=== PATIENT | male | born 1950 | race Caucasian/White ===

== ENCOUNTER 2023-02-11 17:57 | Outpatient (OUT) | payer MEDICARE, OTHER, SELFPAY ==
[2023-02-11 19:03] LABS: Basophils Percent Auto 0.4 % (0.2-2.0); Eosinophils Absolute Auto 0.3 10^3/uL (0.0-0.7); Eosinophils Percent Auto 5.3 % (0.9-7.0); Hematocrit 29.2 % (42.0-54.0); Immature Granulocytes Abs Auto 0.07 10^3/uL (0.00-0.03); Immature Granulocytes Pct Auto 1.3 % (0.0-0.5); Lymphocytes Absolute Auto 0.6 10^3/uL (1.2-3.8); Lymphocytes Percent Auto 10.6 % (20.5-60.0); Mean Corpuscular HGB Conc 30.8 g/dL (29.9-35.2); Mean Corpuscular Hemoglobin 26.2 pg (25.9-34.0); Mean Corpuscular Volume 84.9 fL (80.0-94.0); Mean Platelet Volume 10.1 fL (9.5-13.5); Monocytes Absolute Auto 0.4 10^3/uL (0.3-0.8); Monocytes Percent Auto 8.3 % (1.7-12.0); Neutrophils Absolute Auto 3.9 10^3/uL (1.4-6.5); Neutrophils Percent Auto 74.1 % (43.0-75.0); Platelet Count 164 10^3/uL (150-450); Red Blood Count 3.44 10^6/uL (4.70-6.10); Red Cell Distribution Width 20.4 % (11.0-15.0); White Blood Count 5.3 10^3/uL (4.0-11.0)
[2023-02-11 20:52] LABS: Anion Gap 12.7; BUN Creatinine Ratio 15.2; Carbon Dioxide 21.7 mmol/L (21.0-32.0); Chloride 111 mmol/L (98-107); Estimated GFR (African America 38 (>=60); Estimated GFR (Non-African Ame 31 (>=60); Glucose 101 mg/dL (74-106); Potassium 3.4 mmol/L (3.5-5.1); Sodium 142 mmol/L (136-145)
== END 2023-02-11 17:58 | disposition home or self-care (01) ==
PROVIDERS: PCP Internal Medicine
DX: N17.9 Acute kidney failure, unspecified (principal); I71.20 Thoracic aortic aneurysm, without rupture, unspecified
CPT/HCPCS: 36415; 80048; 85025

== ENCOUNTER 2023-12-27 21:01 | Emergency (ER) | payer OTHER, SELFPAY ==
[2023-12-27] VITALS (21 sets, daily range): BP systolic 194–217; BP diastolic 93–115; PULSE 72–94; TEMP 36; O2SAT 92–96; BMI 28.1
--- NOTE | 2023-12-27 21:17 | CT_ITS ---
The [address] [address] Patient Name: RAYA WILSON MRN: [id number] date: 1950 Sex: M Assigned Patient Location: ER Current Patient Location: ER Accession/Order Number: [id number] Exam Date: 12/27/2023 21:58 Report Date: 12/27/2023 22:21 At the request of: LIAM CONTRERAS Procedure: CT cervical spine wo con EXAM: CT cervical spine wo con CLINICAL INDICATION: trauma COMPARISON: None. TECHNIQUE: CT scanning of the cervical spine was performed in the axial plane. Coronal and sagittal reconstructed images were performed and viewed. FINDINGS: Comminuted nondisplaced type II odontoid fracture involving the posterior aspect of the dens and extending to the right C2 transverse process below the transverse foramen level. The spine is in anatomic alignment. Mild to moderate multilevel degenerative disc and facet disease. The prevertebral soft tissues are unremarkable. Additional soft tissues of the neck and upper thorax are unremarkable. CT/CT cervical spine wo con IMPRESSION: Odontoid fracture as described. Electronically authenticated by: EPIFANIO VERDE Date: 12/27/2023 22:21
--- NOTE | 2023-12-27 21:17 | CT_ITS ---
The [place] [id number] Patient Name: RAYA WILSON MRN: [id number] date: 1950 Sex: M Assigned Patient Location: ER Current Patient Location: ER Accession/Order Number: [id number] Exam Date: 12/27/2023 21:52 Report Date: 12/27/2023 22:16 At the request of: LIAM CONTRERAS Procedure: CT head/brain wo con EXAM: CT head/brain wo con CLINICAL INDICATION: trauma TECHNIQUE: Unenhanced computerized tomography of the head was performed. Automated dose reduction technique was employed. COMPARISON: None. FINDINGS: The ventricles are normal in size, configuration, and position for age. There is no intra- or extra-axial mass, hemorrhage, or fluid collection. No areas of abnormal mass effect or attenuation are noted. There is mild subcortical, deep, and periventricular white matter low-attenuation, compatible with changes of chronic small vessel ischemic disease. Visualized paranasal sinuses are free of mucosal disease. No depressed calvarial fracture. Large left frontal scalp hematoma. CT/CT head/brain wo con IMPRESSION: No acute intracranial abnormality noted. Electronically authenticated by: EPIFANIO VERDE Date: 12/27/2023 22:16
--- NOTE | 2023-12-27 21:19 | ED.FALL1 ---
HPI HPI - Fall General Chief Complaint: Fall Stated Complaint: FALL, HEAD INJURY Time Seen by Provider: 12/27/23 21:06 Mode of arrival: Wheelchair History of Present Illness HPI Narrative: carrying a plant down the stairs outdoors and thought he was on the last step. Loss his balance and went forward striking the top of his head on the garage door. Believes he may have cut left wrist on broken plant pot. Denies LOC. States he was able to get up. No nausea or vomiting. No vision complaint. Denies weakness of his extremities. Denies pain his back or hips. Complains of neck pain. Takes plavix. No abdominal pain. Drove to ER by his complaint: Reports fall Related Data Home Medications ?Medication ?Instructions ?Recorded ?Confirmed atorvastatin 20 mg tablet 20 mg PO DAILY 12/27/23 12/27/23 carvedilol 25 mg tablet 25 mg PO Q12H 12/27/23 12/27/23 clopidogrel 75 mg tablet 75 mg PO DAILY 12/27/23 12/27/23 furosemide 20 mg tablet 20 mg PO DAILY 12/27/23 12/27/23 hydralazine 10 mg tablet 10 mg PO Q8H 12/27/23 12/27/23 pantoprazole 40 mg tablet,delayed 40 mg PO DAILY 12/27/23 12/27/23 release Allergies Allergy/AdvReac Type Severity Reaction Status Date / Time aspirin Allergy Mild Sneezing Verified 12/27/23 21:17 Opioid HPI Opioid Management Most Recent Pain and Opioid Data: No Data to Display Review of Systems ROS Status of ROS 10 or more systems reviewed and unremarkable except as noted in history and below Exam Constitutional Vital Signs, click to edit/add: Last Vital Signs Temp 96.8 F L 12/27/23 21:07 Pulse 72 12/27/23 21:53 Resp 16 12/27/23 21:53 BP 206/101 H 12/27/23 23:45 Pulse Ox 93 L 12/27/23 23:02 O2 Del Method Room Air 12/27/23 21:53 Common normals: average body habitus, oriented x3, no limitations, healthy appearing, alert and well nourished [facility] Other: 9cm lac top of frontal parietal scalp with mod swelling Eye Common normals: PERRL, EOMs intact bilaterally and conjunctivae normal Neck & C-Spine Other: neck in C-collar Chest Common normals: inspection of chest normal and palpation of chest normal Respiratory Common normals: normal respiratory effort, no retractions, no use of accessory muscles and clear to auscultation bilaterally Cardio Common normals: regular rate, regular rhythm, S1 normal heart sound and S2 normal heart sound GI Common normals: Normal to inspection, nondistended, normoactive bowel sounds present, soft to palpation and non-tender Back & Pelvis Common normals: thoracic and lumbar spine normal to inspection and no thoracic nor lumbar tenderness Extremity Common normals: normal to inspection and full ROM Other: small cut left dorsal wrist Neuro Common normals: oriented x3, CN's II-XII intact bilaterally, moves all extremities and no focal motor deficits Psych Appearance: grossly normal Course Vital Signs Vital signs: Vital Signs Temperature 96.8 F L 12/27/23 21:07 Pulse Rate 94 H 12/27/23 21:07 Respiratory Rate 18 12/27/23 21:07 Blood Pressure 217/115 H 12/27/23 21:07 Pulse Oximetry 94 L 12/27/23 21:07 Oxygen Delivery Method Room Air 12/27/23 21:07 Temperature 96.8 F L 12/27/23 21:07 Pulse Rate 72 12/27/23 21:53 Respiratory Rate 16 12/27/23 21:53 Blood Pressure 206/101 H 12/27/23 23:45 Pulse Oximetry 93 L 12/27/23 23:02 Oxygen Delivery Method Room Air 12/27/23 21:53 MDM - Fall MDM Narrative Medical decision making narrative: patient fell falling forward and striking his head against the garage door sustaining a laceration. large scalp laceration. lac repaired with # 12 3.0 nylon stitches. large hematoma of his scalp. He takes plavix. also has hematoma left forearm. CT with odontoid fracture. GCS 15. No neuro deficits. Discussed with Vivi Grant and patient accepted in transfer Lab Data Labs: Lab Results 12/27/23 Range/Units 21:30 WBC 10.6 (4.0-11.0) 10^3/uL RBC 4.06 L (4.70-6.10) 10^6/uL Hgb 9.5 L (14.0-18.0) g/dL Hct 32.7 L (42.0-54.0) % MCV 80.5 (80.0-94.0) fL MCH 23.4 L (25.9-34.0) pg MCHC 29.1 L (29.9-35.2) g/dL RDW 18.3 H (11.0-15.0) % Plt Count 205 (150-450) 10^3/uL MPV 10.1 (9.5-13.5) fL Neut % (Auto) 80.4 H (43.0-75.0) % Lymph % (Auto) 8.5 L (20.5-60.0) % [place] % (Auto) 5.9 (1.7-12.0) % Eos % (Auto) 3.7 (0.9-7.0) % Baso % (Auto) 0.3 (0.2-2.0) % Neut # (Auto) 8.5 H (1.4-6.5) 10^3/uL Lymph # (Auto) 0.9 L (1.2-3.8) 10^3/uL [place] # (Auto) 0.6 (0.3-0.8) 10^3/uL Eos # (Auto) 0.4 (0.0-0.7) 10^3/uL Baso # (Auto) 0.0 (0.0-0.1) 10^3/uL Abs Immat Gran (auto) 0.13 H (0.00-0.03) 10^3/uL Imm/Tot Granulo (auto) 1.2 H (0.0-0.5) % Sodium 143 (136-145) mmol/L Potassium 4.0 (3.5-5.1) mmol/L Chloride 109 H (98-107) mmol/L Carbon Dioxide 26.2 (21.0-32.0) mmol/L Anion Gap 11.8 BUN 26.0 H (7.0-18.0) mg/dL Creatinine 1.64 H (0.70-1.30) mg/dL Est GFR ( Amer) 50 L (>=60) Est GFR (Non-Af Amer) 41 L (>=60) BUN/Creatinine Ratio 15.9 Glucose 120 H (74-106) mg/dL Lactate 1.4 (0.4-2.0) mmol/L Calcium 8.5 (8.5-10.1) mg/dL Total Bilirubin 0.8 (0.2-1.0) mg/dL AST 19 (15-37) U/L ALT 13 L (16-63) U/L Alkaline Phosphatase 86 (46-116) U/L Troponin I High Sens 14.7 (4.0-76.1) pg/mL Total Protein 7.5 (6.4-8.2) g/dL Albumin 2.8 L (3.4-5.0) g/dL Globulin 4.7 g/dL Albumin/Globulin Ratio 0.[address] scan - abdomen: Radiologist's impression: ITS Impressions Cervical Spine CT 12/27/23 21:17 IMPRESSION: Odontoid fracture as described. Electronically authenticated by: EPIFANIO VERDE Date: 12/27/2023 22:[address] 12/27/23 21:17 IMPRESSION: No acute intracranial abnormality noted. Electronically authenticated by: EPIFANIO VERDE Date: 12/27/2023 22:16 Forearm X-Ray 12/27/23 22:16 IMPRESSION: No acute osseous abnormality of the left forearm. Distal forearm dorsal hematoma. Electronically authenticated by: PAIGE PACKER Date: 12/27/2023 23:25 Abdominal x-ray: Attestation: I have reviewed the pertinent imaging results. Radiologist's impression: ITS Impressions Cervical Spine CT 12/27/23 21:17 IMPRESSION: Odontoid fracture as described. Electronically authenticated by: EPIFANIO VERDE Date: 12/27/2023 22:[address] 12/27/23 21:17 IMPRESSION: No acute intracranial abnormality noted. Electronically authenticated by: EPIFANIO VERDE Date: 12/27/2023 22:16 Forearm X-Ray 12/27/23 22:16 IMPRESSION: No acute osseous abnormality of the left forearm. Distal forearm dorsal hematoma. Electronically authenticated by: PAIGE PACKER Date: 12/27/2023 23:25 Chest x-ray: Radiologist's impression: ITS Impressions Cervical Spine CT 12/27/23 21:17 IMPRESSION: Odontoid fracture as described. Electronically authenticated by: EPIFANIO VERDE Date: 12/27/2023 22:[address] 12/27/23 21:17 IMPRESSION: No acute intracranial abnormality noted. Electronically authenticated by: EPIFANIO VERDE Date: 12/27/2023 22:16 Forearm X-Ray 12/27/23 22:16 IMPRESSION: No acute osseous abnormality of the left forearm. Distal forearm dorsal hematoma. Electronically authenticated by: PAIGE PACKER Date: 12/27/2023 23:25 Discharge Plan Discharge Chief Complaint: Fall Clinical Impression: Hematoma of left forearm, Odontoid fracture, Complex laceration of scalp [facility] Procedures ED Procedure Instructions Procedures Procedures: <del>scalp</del> <del>lac.</del> <del>9cm</del> <del>lac</del> <del>frontal</del> <del>parietal</del> <del>scalp</del> <del>into</del> <del>SQ.</del> <del>Active</del> <del>bleeding</del> <del>and</del> <del>large</del> <del>hematoma</del> <del>1%</del> <del>lido</del> <del>with</del> <del>epi</del> <del>as</del> <del>a</del> <del>local.</del> <del>site</del> <del>cleaned</del> <del>with</del> <del>betadine</del> <del>and</del> <del>irrigated</del> <del>with</del> <del>saline.</del> <del>Closed</del> <del>with</del> <del>#12</del> <del>3.0nylone</del> <del>stitches.</del> <del>bleeding</del> <del>decreased</del> <del>significantly</del> <del>and</del> <del>pressure</del> <del>dressing</del> <del>applied</del> <del>over</del> <del>the</del> <del>site</del>
[2023-12-27] MEDS: LABETALOL HCL 20 MG/4 ML SYRINGE 10 MG IVP ×2 (21:39→22:49)
--- NOTE | 2023-12-27 21:45 | PC.NURSE ---
Pt had a cataract extraction with lens implant on thursday12/21/23 , of left eye
[2023-12-27 21:51] LABS: Basophils Percent Auto 0.3 % (0.2-2.0); Eosinophils Absolute Auto 0.4 10^3/uL (0.0-0.7); Eosinophils Percent Auto 3.7 % (0.9-7.0); Hematocrit 32.7 % (42.0-54.0); Hemoglobin 9.5 g/dL (14.0-18.0); Immature Granulocytes Abs Auto 0.13 10^3/uL (0.00-0.03); Immature Granulocytes Pct Auto 1.2 % (0.0-0.5); Lymphocytes Absolute Auto 0.9 10^3/uL (1.2-3.8); Lymphocytes Percent Auto 8.5 % (20.5-60.0); Mean Corpuscular HGB Conc 29.1 g/dL (29.9-35.2); Mean Corpuscular Hemoglobin 23.4 pg (25.9-34.0); Mean Corpuscular Volume 80.5 fL (80.0-94.0); Mean Platelet Volume 10.1 fL (9.5-13.5); Monocytes Absolute Auto 0.6 10^3/uL (0.3-0.8); Monocytes Percent Auto 5.9 % (1.7-12.0); Neutrophils Absolute Auto 8.5 10^3/uL (1.4-6.5); Neutrophils Percent Auto 80.4 % (43.0-75.0); Platelet Count 205 10^3/uL (150-450); Red Blood Count 4.06 10^6/uL (4.70-6.10); Red Cell Distribution Width 18.3 % (11.0-15.0); White Blood Count 10.6 10^3/uL (4.0-11.0)
[2023-12-27 22:09] LABS: Lactate/Lactic Acid 1.4 mmol/L (0.4-2.0)
[2023-12-27 22:15] LABS: Alanine Aminotransferase 13 U/L (16-63); Albumin Globulin Ratio 0.6; Albumin Level 2.8 g/dL (3.4-5.0); Alkaline Phosphatase 86 U/L (46-116); Anion Gap 11.8; Aspartate Amino Transferase 19 U/L (15-37); BUN Creatinine Ratio 15.9; Bilirubin Total 0.8 mg/dL (0.2-1.0); Calcium 8.5 mg/dL (8.5-10.1); Carbon Dioxide 26.2 mmol/L (21.0-32.0); Chloride 109 mmol/L (98-107); Estimated GFR (African America 50 (>=60); Estimated GFR (Non-African Ame 41 (>=60); Globulin 4.7 g/dL; Glucose 120 mg/dL (74-106); Sodium 143 mmol/L (136-145); Total Protein 7.5 g/dL (6.4-8.2); Troponin I High Sensitivity 14.7 pg/mL (4.0-76.1)
--- NOTE | 2023-12-27 22:16 | XR_ITS ---
The [place] [id number] Patient Name: RAYA WILSON MRN: [id number] date: 1950 Sex: M Assigned Patient Location: ER Current Patient Location: ER Accession/Order Number: [id number] Exam Date: 12/27/2023 23:01 Report Date: 12/27/2023 23:25 At the request of: LIAM CONTRERAS Procedure: XR forearm LT 2V XR forearm LT 2V 12/27/2023 11:01 PM EDT CLINICAL INDICATION: Trauma COMPARISON: None. TECHNIQUE: 2 views of the left forearm. FINDINGS: Bones appear intact with anatomic alignment. Joint spaces appear maintained. There is a hematoma measuring up to 11.9 centimeters seen along the dorsum of the distal forearm. XR/XR forearm LT 2V IMPRESSION: No acute osseous abnormality of the left forearm. Distal forearm dorsal hematoma. Electronically authenticated by: PAIGE PACKER Date: 12/27/2023 23:25
[2023-12-27] MEDS: HYDRALAZINE HCL 20 MG/ML VIAL 5 MG IVP (23:25)
[2023-12-27] MEDS: SODIUM CHLORIDE 0.9% IRRIG SOLUTION 1,000 ML BOTTLE 1000 ML IRR (23:56)
[2023-12-27] MEDS: LIDOCAINE HCL 1%-EPINEPHRINE 1:100,000 20 ML MDV INJ (23:57)
[2023-12-28] VITALS (10 sets, daily range): BP systolic 189–209; BP diastolic 84–96; O2SAT 95–97
--- NOTE | 2023-12-28 00:49 | PC.NURSE ---
12 sutures intact and pressure dressing applied at this time.
[2023-12-28] MEDS: HYDRALAZINE HCL 20 MG/ML VIAL 5 MG IVP (01:09)
== END 2023-12-28 01:42 | disposition short-term general hospital (02) ==
PROVIDERS: Emergency Provider Internal Medicine; PCP Internal Medicine
DX: S12.112A Nondisplaced Type II dens fracture, initial encounter for closed fracture (principal); S01.01XA Laceration without foreign body of scalp, initial encounter; W10.8XXA Fall (on) (from) other stairs and steps, initial encounter; Z79.02 Long term (current) use of antithrombotics/antiplatelets; S50.12XA Contusion of left forearm, initial encounter; W22.8XXA Striking against or struck by other objects, initial encounter
CPT/HCPCS: 12004; 36415; 70450; 72125; 73090; 80053; 83605; 84484; 85025; 96374; 96375; 96376; 99285

== ENCOUNTER 2024-02-29 09:49 | Outpatient (RCR) | payer OTHER, SELFPAY | END 2024-03-15 16:51 | disposition home or self-care (01) | LOC: PT 09:49 | PROVIDERS: PCP Internal Medicine | DX: Z98.1 Arthrodesis status (principal); R29.3 Abnormal posture | CPT/HCPCS: 97110; 97161 ==

== ENCOUNTER 2025-03-16 07:29 | Outpatient (RCR) | payer OTHER, SELFPAY ==
[2025-03-04 10:20] VITALS: BP 99/55; PULSE 71; TEMP 36.5; O2SAT 95
[2025-03-05 10:04] VITALS: BP 92/60; PULSE 74; TEMP 36.6; O2SAT 95
[2025-03-06 09:54] VITALS: BP 127/80; PULSE 77; TEMP 36.9; O2SAT 92
--- NOTE | 2025-03-06 10:07 | PC.NURSE ---
inserted at [facility]
[2025-03-07 09:44] VITALS: BP 138/78; PULSE 74; TEMP 37; O2SAT 95
[2025-03-07 10:03] LABS: Hematocrit 26.7 % (42.0-54.0); Hemoglobin 8.3 g/dL (14.0-18.0); Immature Granulocytes Abs Auto 0.06 10^3/uL (0.00-0.03); Immature Granulocytes Pct Auto 0.6 % (0.0-0.5); Lymphocytes Absolute Auto 0.5 10^3/uL (1.2-3.8); Mean Corpuscular HGB Conc 31.1 g/dL (29.9-35.2); Mean Corpuscular Hemoglobin 25.5 pg (25.9-34.0); Mean Corpuscular Volume 81.9 fL (80.0-94.0); Platelet Count 246 10^3/uL (150-450); Red Blood Count 3.26 10^6/uL (4.70-6.10); White Blood Count 9.5 10^3/uL (4.0-11.0)
[2025-03-07 10:12] LABS: Anion Gap 11.0; Blood Urea Nitrogen 15.0 mg/dL (7.0-18.0); Calcium 8.1 mg/dL (8.5-10.1); Carbon Dioxide 29.3 mmol/L (21.0-32.0); Chloride 104 mmol/L (98-107); Estimated GFR (African America >60 (>=60 mL/min/1.73m^2); Estimated GFR (Non-African Ame >60 (>=60 mL/min/1.73m^2); Glucose 119 mg/dL (74-106); Potassium 4.3 mmol/L (3.5-5.1); Sodium 140 mmol/L (136-145)
[2025-03-08 09:46] VITALS: BP 135/69; PULSE 77; TEMP 37; O2SAT 93
[2025-03-09 09:43] VITALS: BP 131/67; PULSE 73; TEMP 37.4; O2SAT 94
--- NOTE | 2025-03-09 09:47 | PC.NURSE ---
Rt upper arm picc line intact, excellent blood return noted. IV antibiotics administered as ordered. old dressing stat lock removed. Approx 1 cm external catheter noted, site clear no reddness or edema. Under sterile technique, site cleansed with CHG sponge, skin prep applied. new stat lock and CHG dressing applied, new clave connector applied as well as CHG cap applied after antibiotic infusion. tolerated well. Patient relates to some edema of BLE, noted to have 2+pitting pretibial edema. states he has had it for the past week. denies any heart problems, denies shortness of breath, educated patient on limiting na intake, wearing support hose and keeping lower extremities elevated as much as possible, verbalizes understanding
[2025-03-10 09:40] VITALS: BP 123/58; PULSE 77; TEMP 36.6; O2SAT 93
[2025-03-11 09:52] VITALS: BP 132/73; PULSE 88; TEMP 36.7; O2SAT 95
[2025-03-11 10:34] VITALS: BP 106/64; PULSE 82; TEMP 37; O2SAT 95
[2025-03-12 09:48] VITALS: BP 126/71; PULSE 80; TEMP 36.6; O2SAT 96
[2025-03-12 10:26] VITALS: BP 115/64; PULSE 75; TEMP 37; O2SAT 95
[2025-03-13 09:41] VITALS: BP 145/68; PULSE 92; TEMP 37; O2SAT 93
[2025-03-13 10:20] LABS: Hematocrit 28.0 % (42.0-54.0); Hemoglobin 8.6 g/dL (14.0-18.0); Mean Corpuscular HGB Conc 30.7 g/dL (29.9-35.2); Mean Corpuscular Hemoglobin 25.4 pg (25.9-34.0); Mean Corpuscular Volume 82.6 fL (80.0-94.0); Platelet Count 277 10^3/uL (150-450); Red Blood Count 3.39 10^6/uL (4.70-6.10); White Blood Count 11.8 10^3/uL (4.0-11.0)
[2025-03-13 10:31] LABS: Anion Gap 10.7; Blood Urea Nitrogen 16.0 mg/dL (7.0-18.0); Calcium 8.2 mg/dL (8.5-10.1); Carbon Dioxide 28.2 mmol/L (21.0-32.0); Chloride 104 mmol/L (98-107); Estimated GFR (African America >60 (>=60 mL/min/1.73m^2); Estimated GFR (Non-African Ame >60 (>=60 mL/min/1.73m^2); Glucose 149 mg/dL (74-106); Potassium 3.9 mmol/L (3.5-5.1); Sodium 139 mmol/L (136-145)
[2025-03-13 10:45] LABS: Basophils Abs Manual 0.23 10^3/uL (0.00-0.10); Basophils Percent Manual 2.0 % (0.2-2.0); Eosinophils Absolute Manual 0.00 10^3/uL (0.00-0.70); Eosinophils Percent Manual 0.0 % (0.9-7.0); Lymphocytes Absolute Manual 0.47 10^3/uL (1.20-3.80); Lymphocytes Percent Manual 4.0 % (20.5-60.0); Monocytes Absolute Manual 0.70 10^3/uL (0.30-0.80); Monocytes Percent Manual 6.0 % (1.7-12.0); Segmented Neut Absolute Manual 10.38 10^3/uL (1.4-6.5); Segmented Neutrophils % Manual 88.0 (43.0-75.0)
[2025-03-14 09:45] VITALS: BP 136/73; PULSE 90; TEMP 37.1; O2SAT 92
[2025-03-15 09:54] VITALS: BP 134/65; PULSE 95; TEMP 38.4; O2SAT 93
[2025-03-16 09:44] VITALS: BP 124/66; PULSE 91; TEMP 37; O2SAT 93
--- NOTE | 2025-03-16 09:47 | PC.NURSE ---
rt upper arm midline intact, unble to obtain bood return, flushes easily. site clear, new stat lock and CHG dressing applied, new clave and CHG cap applied, tolerated well. Line has 0 cm external catheter.
== END 2025-03-16 23:59 | disposition home or self-care (01) ==
LOC: INF 07:29
PROVIDERS: PCP Internal Medicine
DX: J86.9 Pyothorax without fistula (principal)
CPT/HCPCS: 36415; 36592; 51702; 80048; 85007; 85025; 85027; 96365; G0463; J0696

== ENCOUNTER 2025-04-14 12:15 | Outpatient (RCR) | payer OTHER, SELFPAY ==
[2025-04-11 15:48] VITALS: BP 151/71; PULSE 69; TEMP 36.7; O2SAT 91
[2025-04-12 14:01] VITALS: BP 125/64; PULSE 74; TEMP 36.6; O2SAT 93
[2025-04-13 13:55] VITALS: BP 136/72; PULSE 65; TEMP 36.6; O2SAT 97
[2025-04-14 13:45] VITALS: PULSE 69; TEMP 36.6; O2SAT 93
== END 2025-04-16 23:59 | disposition home or self-care (01) ==
LOC: INF 12:15
PROVIDERS: PCP Internal Medicine
DX: J86.9 Pyothorax without fistula (principal)
CPT/HCPCS: 96365; J0696